=== PATIENT | male | born 1965 | race Caucasian/White ===

== ENCOUNTER 2017-01-27 09:15 | Observation (INO) | payer BC ==
[2017-01-27] MEDS ORDERED: Sodium Chloride 0.9% 1000 ML 1,000 ML ONE (09:53)
--- NOTE | 2017-01-27 09:58 | ERPHSYRPT ---
- History of Present Illness Time Seen by Provider: 01/27/17 09:45 Historian: patient, other Patient Subjective Stated Complaint: blood in stool for 3 days Triage Nursing Assessment: pt states he has at least 5 bright red stools for past 3 days. denies abd pain, n/v. c/o lightheadedness with any movement. skin warm and dry. cupola man equal. normal appetite, normal bladder Physician History: PATIENT WITH HISTORY OF DIVERTICULITIS COMPLAINS OF RECTAL BLEEDING X 3 DAYS 5 EPISODES DAILY. DENIES WEAKNESS, DIZZINESS OR ABDOMINAL PAIN. Timing/Duration: day(s) Activities at Onset: none Quality: other (DENIES PAIN) Pain Radiation: no radiation Severity of Pain-Max: none Severity of Pain-Current: none Modifying Factors: Improves With: nothing Associated Symptoms: denies symptoms Previous symptoms: no prior history Allergies/Adverse Reactions: No Known Drug Allergies Allergy (Unverified 01/27/17 09:37) Home Medications: Gabapentin 300 mg PO TID 01/27/17 [History] Hydrocodone/Acetaminophen [Vicodin Es 7.5-300 mg Tablet] 1 each PO BIDPRN PRN [History] Naproxen 500 mg PO BID 01/27/17 [History] Hx Tetanus, Diphtheria Vaccination/Date Given: Yes Hx Influenza Vaccination/Date Given: No Hx Pneumococcal Vaccination/Date Given: No Immunizations Up to Date: Yes - Review of Systems Constitutional: No Fever, No Chills Eyes: No Symptoms Ears, Nose, & Throat: No Symptoms Respiratory: No Symptoms, No Cough, No Dyspnea Cardiac: No Symptoms, No Chest Pain, No Edema, No Syncope Abdominal/Gastrointestinal: Hematochezia, No Abdominal Pain, No Nausea, No Vomiting, No Diarrhea Genitourinary Symptoms: No Symptoms, No Dysuria Musculoskeletal: No Symptoms, No Back Pain, No Neck Pain Skin: No Symptoms, No Rash Neurological: No Dizziness, No Focal Weakness, No Sensory Changes Psychological: No Symptoms Endocrine: No Symptoms All Other Systems: Reviewed and Negative - Past Medical History Pertinent Past Medical History: Yes Cardiac History: Hypertension GI Medical History: Diverticulitis, Ulcer Other Medical History: pinched nerve in neck - Past Surgical History Past Surgical History: Yes Gastrointestinal: Appendectomy - Social History Smoking Status: Never smoker Exposure to second hand smoke: Yes Drug Use: none Patient Lives Alone: No - Nursing Vital Signs Nursing Vital Signs: Initial Vital Signs Temperature 98.5 F Temperature Source Oral Pulse Rate 89 Respiratory Rate 18 Blood Pressure [Right Arm] 154/77 Pain Intensity 0 - Physical Exam General Appearance: no apparent distress, alert Eye Exam: PERRL/EOMI, eyes nml inspection Ears, Nose, Throat Exam: normal ENT inspection, pharynx normal, moist mucous membranes Neck Exam: normal inspection, non-tender, supple, full range of motion Respiratory Exam: normal breath sounds, lungs clear, No respiratory distress Cardiovascular Exam: regular rate/rhythm, normal heart sounds Gastrointestinal/Abdomen Exam: soft, normal bowel sounds, other (OBESE), No tenderness, No mass Rectal Exam: normal exam, other (MAROON STOOL) Back Exam: normal inspection, normal range of motion, No CVA tenderness, No vertebral tenderness Extremity Exam: normal inspection, normal range of motion, pelvis stable Neurologic Exam: alert, oriented x 3, cooperative, normal mood/affect, nml cerebellar function, sensation nml, No motor deficits Skin Exam: normal color, warm, dry SpO2 Interpretation: normal SpO2: 98 Oxygen Delivery: Room Air Ordered Tests: Active Orders 24 hr Category Date Time Status Up With Assistance ROUTINE Activity 01/27/17 10:47 Active Admission/Status Order ROUTINE Care 01/27/17 10:47 Active Call Admit Doctor for Orders ON ADMISSION Care 01/27/17 10:48 Active Code Status Order ROUTINE Care 01/27/17 10:47 Active IV Care Q6H Care 01/27/17 10:47 Active IV Insertion STAT Care 01/27/17 09:51 Active Oxygen-ED Only NASAL CANNULA 2 lpm Care 01/27/17 09:51 Active Vital Signs Q4H Care 01/27/17 10:47 Active NPO Diet 01/27/17 11:00 Active BMP Stat Lab 01/27/17 09:55 Completed CBC W DIFF AM.LAB Lab 01/28/17 04:00 Ordered CBC W DIFF Stat Lab 01/27/17 09:55 Completed Manual Differential NC Stat Lab 01/27/17 09:55 Completed Occult Blood,Stool Other Stat Lab 01/27/17 09:50 Completed PROTIME WITH INR Stat Lab 01/27/17 09:55 Completed Transfer Order Routine Transfer 01/27/17 10:46 Ordered Medication Summary Generic Name Dose Route Start Last Admin Trade Name Freq PRN Reason Stop Dose Admin Sodium Chloride 1,000 mls @ 100 mls/hr 01/27/17 10:00 01/27/17 10:17 Sodium Chloride 0.9% 1000 Ml IV 02/26/17 09:59 100 mls/hr .Q10H GIOVANNA Administration Ondansetron HCl 4 mg 01/27/17 10:47 Zofran 4 Mg/2 Ml Vial IV 02/26/17 10:46 Q6H PRN PRN NAUSEA/VOMITING Discontinued Medications Generic Name Dose Route Start Last Admin Trade Name Tamara PRN Reason Stop Dose Admin Sodium Chloride Confirm 01/27/17 09:53 Sodium Chloride 0.9% 1000 Ml Administered 01/27/17 09:54 Dose 1,000 mls @ ud .ROUTE .[facility] Lab/Rad Data: Laboratory Result Diagrams 01/27/17 09:55 01/27/17 09:55 Laboratory Results 01/27/17 01/27/17 01/27/17 Range/Units 09:55 09:55 09:55 WBC (4.0-10.5) K/mm3 RBC (4.1-5.6) M/mm3 Hgb (12.5-18.0) gm/dl Hct (42-50) % MCV (78-100) fl MCH (26-32) pg MCHC (32-36) g/dl RDW (11.5-14.0) % Plt Count (150-450) K/mm3 MPV (6-9.5) fl Segmented Neutrophils (36.-66.) % Lymphocytes (Manual) (24-44) % Monocytes (Manual) (0.0-12.0) % Eosinophils (Manual) (0.00-3.0) % Differential Comment Atypical Lymphocytes % Toxic Granulation Platelet Estimate (NORMAL) Polychromasia Anisocytosis INR 1.04 (0.8-3.0) Sodium 130 L (136-145) mEq/L Potassium 4.0 (3.5-5.1) mEq/L Chloride 101 (98-107) mEq/L Carbon Dioxide 26.8 (21-32) mEq/L Anion Gap 6.2 (5-15) MEQ/L BUN 16 (9-20) mg/dL Creatinine 1.04 (0.55-1.30) mg/dl Estimated GFR > 60 ML/MIN Glucose 231 H (70-110) MG/DL Calcium 8.5 (8.5-10.1) mg/dL Stool Occult Blood (Negative) ABO Group O Rh Factor POSITIVE Antibody Screen NEGATIVE (NEGATIVE) 01/27/17 01/27/17 Range/Units 09:55 09:50 WBC 9.6 (4.0-10.5) K/mm3 RBC 4.64 (4.1-5.6) M/mm3 Hgb 12.6 (12.5-18.0) gm/dl Hct 37.0 L (42-50) % MCV 79.7 (78-100) fl MCH 27.2 (26-32) pg MCHC 34.1 (32-36) g/dl RDW 13.9 (11.5-14.0) % Plt Count 255 (150-450) K/mm3 MPV 9.0 (6-9.5) fl Segmented Neutrophils 70 H (36.-66.) % Lymphocytes (Manual) 17 L (24-44) % Monocytes (Manual) 8 (0.0-12.0) % Eosinophils (Manual) 4 H (0.00-3.0) % Differential Comment ABNORMAL Atypical Lymphocytes 1 % Toxic Granulation 1+ Platelet Estimate NORMAL (NORMAL) Polychromasia RARE Anisocytosis 1+ INR (0.8-3.0) Sodium (136-145) mEq/L Potassium (3.5-5.1) mEq/L Chloride (98-107) mEq/L Carbon Dioxide (21-32) mEq/L Anion Gap (5-15) MEQ/L BUN (9-20) mg/dL Creatinine (0.55-1.30) mg/dl Estimated GFR ML/MIN Glucose (70-110) MG/DL Calcium (8.5-10.1) mg/dL Stool Occult Blood POSITIVE (Negative) ABO Group Rh Factor Antibody Screen (NEGATIVE) - Progress Progress Note: 01/27/17 09:58 PATIENT GIVEN IV FLUIDS NORMAL SALINE Discussed with : Pawel Will see patient in: hospital (observation) (DISCUSSED WITH DR WOODWARD AT 1030 FOR OBSERVATION) - Departure Time of Disposition: 10:52 Departure Disposition: Observation Clinical Impression: LOWER GI BLEED Condition: Stable Critical Care Time: No Referrals: ESHA PAN [Primary Care Provider] -
[2017-01-27 10:06] LABS: Mean Cell Volume 79.7 fl (78-100); Mean Corpuscular Hemoglobin 27.2 pg (26-32); Platelet Count 255 K/mm3 (150-450); Red Blood Count 4.64 M/mm3 (4.1-5.6); Red Cell Distribution Width 13.9 % (11.5-14.0); White Blood Count 9.6 K/mm3 (4.0-10.5)
[2017-01-27] MEDS: Sodium Chloride 0.9% 1000 ML 1,000 ML IV SCH ×2 (10:17→19:43)
[2017-01-27 10:24] LABS: ANION GAP 6.2 MEQ/L (5-15); BLOOD UREA NITROGEN 16 mg/dL (9-20); CHLORIDE 101 mEq/L (98-107); Carbon Dioxide 26.8 mEq/L (21-32); Glucose 231 MG/DL (70-110); INR 1.04 (0.8-3.0); PROTIME 11.6 SECONDS (8.83-12.87); SODIUM 130 mEq/L (136-145)
[2017-01-27 10:42] LABS: ANISOCYTOSIS 1+; ATYPICAL LYMPHS 1 %; Eosinophil 4 % (0.00-3.0); Platelet Estimate NORMAL (NORMAL); Total Cells Counted 100; Toxic Granulation 1+
[2017-01-27 10:43] LABS: Polychromasia RARE
[2017-01-27] MEDS ORDERED: Zofran 4 MG/2 ML VIAL IV PRN ×2 (10:47→12:49)
[2017-01-27] MEDS ORDERED: Sodium Chloride 0.9% 1000 ML 1,000 ML IV SCH (13:00)
[2017-01-27] MEDS ORDERED: TYLENOL 325 MG PO PRN (13:11)
[2017-01-27] MEDS ORDERED: Golytely Solution 4000 ML PO ONE (14:00)
[2017-01-28] MEDS ORDERED: Lactated Ringers 1,000 ML IV SCH (05:00)
[2017-01-28] MEDS ORDERED: Pepcid 20 MG VIAL IV SCH (05:00)
[2017-01-28 05:56] LABS: BASOPHIL % 0.5 % (0.0-0.4); Eosinophil % 5.8 % (0.00-5.0); Granulocytes % 62.6 % (36.0-66.0); Lymphocytes % 20.7 % (24.0-44.0); Mean Cell Volume 80.7 fl (78-100); Mean Corpuscular Hemoglobin 28.9 pg (26-32); Mean Platelet Volume 9.3 fl (6-9.5); Monocytes % 10.4 % (0.0-12.0); Platelet Count 211 K/mm3 (150-450); Red Blood Count 3.84 M/mm3 (4.1-5.6); Red Cell Distribution Width 13.7 % (11.5-14.0); White Blood Count 7.8 K/mm3 (4.0-10.5)
[2017-01-28] MEDS ORDERED: Versed 2 MG/2 ML Injection IV ONE (08:00)
--- NOTE | 2017-01-28 08:08 | HP ---
HISTORY OF PRESENT ILLNESS: This is a 51 year-old patient who presented to the emergency department complaining of rectal bleeding for the past five days. He reports he had three large bloody stools this morning and was also feeling dizzy and that is why he came into the emergency department today. He said there was quite a bit of blood in the bowel movement when he has it. He has not had any since he arrived here. He reports his last colonoscopy was in 2000 or [address] and was done [address] Dr[address] Botello at [facility] and he was told at that time he had diverticulitis. He has not had any bleeding from his rectum in the past. REVIEW OF SYSTEMS: He denies fever. No cough. No rhinorrhea. No abdominal pain. No chest pain. No lower extremity edema. No diarrhea. No nausea or vomiting. PAST MEDICAL HISTORY: Neck pain, diverticulitis. PAST SURGICAL HISTORY: Appendectomy. MEDICATIONS: He used to be on gabapentin 300 mg p.o. t.i.d., hydrocodone/acetaminophen 7.5/300 one tablet p.o. b.i.d. PRN, naproxen 500 mg p.o. b.i.d. He states he stopped taking all of these. The nurse's note said he stopped these on 01/26/2017. ALLERGIES: NKDA. SOCIAL HISTORY: He denies any tobacco or alcohol use. He is exposed to secondhand smoke from the person he lives with. FAMILY HISTORY: His mother is and had leukemia and when she was 58. His father is living and does not have any health problems. PHYSICAL EXAMINATION: VITAL SIGNS: Temperature current 98.1F, temperature max 98.5F, heart rate 85 to 89, respiratory rate 18, blood pressure 135 to 150 over 60 to 77, weight 149.6 kg. Oxygen saturation 95 to 98% on room air. GENERAL: The patient is a pleasant man lying in bed in no acute distress. CVS: He has a regular rate and rhythm. No murmurs, gallops or rubs. CHEST: Clear to auscultation bilaterally. No crackles or wheezes. ABDOMEN: Soft, nontender, nondistended with normal bowel sounds. RECTAL: Deferred as he just had this done in the emergency room and the emergency room doctor reported maroon stool on the glove. EXTREMITIES: No clubbing, cyanosis or edema. SKIN: Warm, dry and intact. LABORATORY DATA AND TESTS: ASSESSMENT AND PLAN: 1) HEMATOCHEZIA. Rechecked his hemoglobin at approximately 1800 hours tonight his hemoglobin was stable at 12.6. Will ask for the general surgeon to consult to see about colonoscopy to look for the source of the bleeding. He has been started on IV fluids normal saline at 100 ml/hour. 2) HISTORY OF NECK PAIN. Will continue with Tylenol as needed for pain. 3) CODE STATUS: This was discussed extensively with the patient and he does not want to have any chest compressions or be placed on a ventilator if something would happen suddenly here in the hospital.
[2017-01-28] MEDS ORDERED: FEOSOL 325 MG PO SCH (10:00)
[2017-01-28 11:24] VITALS: BP 144/66; PULSE 98; O2SAT 98
--- NOTE | 2017-01-28 11:43 | OP ---
SURGERY DATE/TIME: 01/28/2017813 PREOPERATIVE DIAGNOSIS: Rectal bleeding. POSTOPERATIVE DIAGNOSIS: Diverticular bleeding. PROCEDURE: Colonoscopy. SURGEON: Dr. Gonzalez. ANESTHESIA: MAC. Medications given by anesthesia department. HISTORY: The patient is a 51 year-old white male patient presenting now for rectal bleeding. The patient reports it is bright red in nature and has been going on for the past three days and is painless. The patient reports that he did previously have a colonoscopy about 15 years ago at which time diverticula were found. The patient was appraised of the risks of the procedure including the risk of perforation, phlebitis, untoward reaction to medication, bleeding, and missed lesions. The patient verbalized his understanding and desired to have the procedure performed. DESCRIPTION OF PROCEDURE: The patient was given the medications by the anesthesia department. He had continuous pulse oximetry, ECG monitoring, intermittent blood pressure monitoring, and tidal CO2 monitoring during the examination. He was placed in the left lateral decubitus position. A digital rectal examination was performed and revealed normal anal sphincter tone, no masses and normal prostate and no blood on the examining finger was noticed. The flexible Olympus pediatric colonoscope was used to intubate the rectum. A view of the colon was developed sequentially to the cecum. Upon insertion and withdrawal, it was noted diverticular disease marked to severe on the left side of the colon. There was also noted a fair amount of blood mixed in with the GoLYTELY prep noted approximately half way through the colon but in the right side of the colon there was no significant blood noted. Upon insertion and withdrawal including a retroflex view in the rectum, no mucosal lesions being encountered the scope was removed from the patient who tolerated the procedure well and was sent back to OP recovery in good condition. The prep was noted to be fair.
[2017-01-28] MEDS ORDERED: DIPRIVAN 200 MG/20 ML IV ONE (12:39)
[2017-01-28] MEDS ORDERED: SUBLIMAZE 250 MCG/5 ML IJ ONE (12:39)
== END 2017-01-28 12:40 | disposition left against medical advice (07) ==
LOC: ED 09:15 → MED SURG 11:11
PROVIDERS: ADMIT Family Medicine; ATTEND Family Medicine
PROC: 0DJD8ZZ Inspection of Lower Intestinal Tract, Via Natural or Artificial Opening Endoscopic (ICD-10-PCS; principal; 2017-01-28)
DX: K62.5 Hemorrhage of anus and rectum (principal); K57.30 Diverticulosis of large intestine without perforation or abscess without bleeding
CPT/HCPCS: 00810; 36000; 36415; 80048; 82272; 85014; 85018; 85025; 85610; 86850; 86900; 86901; 96360; 96361; 99285; G0378; J2250; J2704; J3010; A9270-GY